=== PATIENT | male | born 1995 | race Caucasian/White ===

== ENCOUNTER 2021-06-28 10:41 | Emergency (ER) | payer SELFPAY ==
[2021-06-28] MEDS ORDERED: Sodium Chloride 0.9% 10 ML Syringe FLUSH PRN (11:18)
[2021-06-28] MEDS ORDERED: Sodium Chloride 0.9% 1,000 ML IV STA (11:18)
[2021-06-28] MEDS ORDERED: Ondansetron 4 MG/2 ML SDV IVPUSH ONE (11:18)
[2021-06-28] MEDS ORDERED: Famotidine 20 MG Tab PO ONE (11:22)
[2021-06-28 16:25] LABS: C. TRACHOMATIS BY PCR NOT DETECTED; N. GONORRHOEAE BY PCR NOT DETECTED
== END 2021-06-28 17:00 | disposition home or self-care (01) ==
LOC: JD.ED 10:41
DX: K29.00 Acute gastritis without bleeding (principal); Z87.891 Personal history of nicotine dependence
CPT/HCPCS: 36415; 80053; 80074; 83690; 83735; 85025; 86140; 87449; 87491; 87591; 96374; 99284; A9270; J2405; J7030; G0433

== ENCOUNTER 2021-09-04 21:06 | Emergency (ER) | payer BC ==
[2021-09-04] MEDS ORDERED: Ketorolac 15 MG/ML SDV IVPUSH ONE (22:48)
[2021-09-04] MEDS: Ketorolac 30 MG/ML SDV IM ONE (23:00)
== END 2021-09-05 00:25 | disposition left against medical advice (07) ==
LOC: JD.ED 21:06
DX: S02.2XXA Fracture of nasal bones, initial encounter for closed fracture (principal); S09.90XA Unspecified injury of head, initial encounter; W50.0XXA Accidental hit or strike by another person, initial encounter
CPT/HCPCS: 70450; 70450-26; 70486; 70486-26; 99283-25; 99284

== ENCOUNTER 2021-09-06 08:37 | Emergency (ER) | payer SELFPAY | END 2021-09-06 10:45 | disposition home or self-care (01) | LOC: JD.ED 08:37 | DX: S06.0X1A Concussion with loss of consciousness of 30 minutes or less, initial encounter (principal); S02.2XXA Fracture of nasal bones, initial encounter for closed fracture; S16.1XXA Strain of muscle, fascia and tendon at neck level, initial encounter; S00.81XA Abrasion of other part of head, initial encounter; S00.512A Abrasion of oral cavity, initial encounter; L08.9 Local infection of the skin and subcutaneous tissue, unspecified; B96.89 Other specified bacterial agents as the cause of diseases classified elsewhere; Z72.0 Tobacco use; Y04.2XXA Assault by strike against or bumped into by another person, initial encounter | CPT/HCPCS: 72040; 72040-26; 99284; 99284-25 ==